=== PATIENT | male | born 1940 | race Caucasian/White ===

== ENCOUNTER → 2016-04-08 | Outpatient (CLI) | payer OTHER ==
[~2016-04-08] MED LIST: ACET1TAB84 PO; ASCO1CAP3 PO; ASPI81TA28 PO; ATV/1 PO; BACL10TA PO; BACL20TA PO; CHOL1000 PO; CHOL1TAB76 PO; CYAN10005 PO; DICL1GEL28 TOP; FERR1TAB23 PO; FERROUS PO; FLNIN NAE; FLV1 PO; GLUC15002 PO; GUAI1TAB27 PO; HUMULIN N SQ; INSUINJ17 SC; IPRA1AER2 INH; LEVO112T2 PO; LEVO125T72 PO; LEVO1TAB PO; LIVALO PO; LOSA25TA18 PO; LOSA50TA6 PO; LUTE20TA PO; MULTTAB58 PO; NIAC1TAB3 PO; NRN/300 PO; NVLNI SC; OMEG10002 PO; OMEGCAP2 PO; OXGN; PYRI100T4 PO; TORS20TA2 PO; TURM1CAP4 PO; VENL150C56 PO; VITA200C5 PO
== END | disposition home or self-care (01) ==
LOC: C.LABSPEC 17:08
PROVIDERS: ATTEND Podiatrist Foot & Ankle Surgery
DX: L97.509 Non-pressure chronic ulcer of other part of unspecified foot with unspecified severity (principal)

== ENCOUNTER → 2016-07-05 | Outpatient (CLI) | payer OTHER ==
[~2016-07-05] MED LIST changes: +CEPH500C PO; -GUAI1TAB27 PO; +GUAI400T44 PO
[2016-07-05 12:40] LABS: HEMATOCRIT 41.3 % (42-52); MEAN CELL VOLUME 105.1 fL (80-100); MEAN CORPUSCULAR HEMOGLOBIN 33.6 pg (25-34); PLATELET COUNT 143 K/uL (130-400); RED BLOOD COUNT 3.93 M/uL (4.7-6.1); WHITE BLOOD COUNT 10.55 K/uL (4.8-10.8)
[2016-07-05 14:03] LABS: BLOOD UREA NITROGEN 35 mg/dl (7-18); BUN/CREATININE RATIO 25.3 (10-20); CARBON DIOXIDE 31 mmol/L (21-32); CHLORIDE 108 mmol/L (98-107); GLUCOSE 114 mg/dl (70-99); POTASSIUM 4.3 mmol/L (3.5-5.1); SODIUM 145 mmol/L (136-145)
== END | disposition home or self-care (01) ==
LOC: C.LAB 11:56
PROVIDERS: ATTEND Internal Medicine Interventional Cardiology
DX: Z01.818 Encounter for other preprocedural examination (principal)

== ENCOUNTER → 2016-07-07 | Day surgery (SDC) | payer OTHER ==
[2016-07-07] VITALS (9 sets, daily range): BP systolic 111–142; BP diastolic 44–74; PULSE 80–87; TEMP 36.4–36.7; O2SAT 84–98; Ht 195.6 cm; Wt 170.4 kg
[~2016-07-07] VITALS: Ht 195.6 cm; Wt 170.4 kg
[~2016-07-07] MED LIST changes: +ACETAMINOPHEN 325 MG TAB PO PRN; +FENTANYL CITRATE INJ 50 MCG/1 ML 2 ML VIAL IV ONE; +FENTANYL CITRATE INJ 50 MCG/1 ML 2 ML VIAL ONE; +HEPARIN SOD (PORCINE) 1000 UNIT/ML 10 ML VIAL ONE; +IODIXANOL (VISIPAQUE) 270 MG/ML 150ML FLUSH ONE; +MIDAZOLAM HCL 1 MG/ML 2ML VIAL IV ONE; +MIDAZOLAM HCL 1 MG/ML 2ML VIAL ONE; +NITROGLYCERIN 5 MG/ML 10 ML VIAL IART ONE; +NITROGLYCERIN/D5W 100MCG/ML 20ML SYR ONE; +NiCARDipine HCL INJ 2.5 MG/ML 10 ML AMP ONE; +SODIUM CHLORIDE 0.9% 1000ML 1,000 ML IV SCH; +SODIUM CHLORIDE 0.9% 1000ML IV SCH
--- NOTE | 2016-07-07 07:43 | Procedure Note ---
Pre-Mod Sedation Assessment General Date of Moderate Sedation: July 07, 2016. Vital Signs: Vital Signs Past 12 Hours Date Time Temp Pulse Resp B/P Pulse Ox O2 Delivery O2 Flow Rate FiO2 07/07/16 06:33 36.7 82 22 142/74 93 Room Air Review Cardiovascular: regular rate, rhythm, no edema Abdomen: normal bowel sounds, soft Lungs: chest non-tender, lungs clear Pre-Sedation Airway Assessment Oral Cavity: Dentures Able to Visualize Vocal Cords: No Short Thick Neck: Yes Hx of Sleep Apnea: Yes Smoking Status: Former Smoker Mallampati Classification: Class III ASA Classification: Class III Procedure Planning Contraindications-for Mod Sed: None Yes Notes The planned sedation has been discussed with the patient and consent obtained. I have identified the patient, determined the appropriateness of sedation and have assessed the patient immediately prior to the procedure. All medicine(s) and interventions are by my order.
--- NOTE | 2016-07-07 07:51 | History and Physical ---
History & Physical Date July 07, 2016. Chief Complaint PAD, Non-healing lower extremity ulceration History of Present Illness Mr. Thompson is a very pleasant 75 year old man with a history of PAD post left lower extremity DEPUTY BUILDING GUARD, type 2 diabetes on insulin, morbid obesity, hyperlipidemia , KARLA on BiPap, COPD, CKD, and prior tobacco abuse here for follow-up slow healing lower extremity wound. Patient followed by his systems lead, Dr. Schuster. He has had a slow healing ulceration on his left heel since November. Wound is decreasing in size per his with continued wound care. He denies any surrounding redness, fevers/ chills, or drainage. Denies any rest pain. Previously followed by Dr. Gill for his vascular care. Per report underwent DEPUTY BUILDING GUARD without stenting to his SFA in 2013 for left rolon wounds with eventual healing. Has been followed since with intermittent ABIs. Recent noninvasive physiologic testing showed moderate arterial insufficiency on the right by WILLARD and noncompressible tibial vessels the left with moderate insufficiency by TBI on the left. There is suggestion of moderate distal SFA disease and severe diffuse tibial vessel disease on the left. Past Medical/Surgical History PAD s/p DEPUTY BUILDING GUARD, Type 2 DM, Dyslipidemia, COPD, KARLA on BiPap on 4L at night, CKD, Hypothyroidism, anemia, chronic back pain requiring steroid injections, Osteoarthritis post left total hip replacement complicated by hematoma Additional History Hepatic Disease: No Endocrine Disorder: Yes Kidney Disease: Yes Hypertension: Yes Heart Disease: No Bleeding Tendencies: No Infectious Diseases: No Allergies Coded Allergies: Warfarin (Verified Allergy, Intermediate, NECROSIS, 07/07/16) STEPHANE Inhibitors (Verified Allergy, Mild, Cough., 07/07/16) Sulfa Antibiotics (Verified Allergy, Mild, Itching., 07/07/16) Home Medications Scheduled Ascorbic Acid (Vitamin C), 500 MG PO BID Aspirin (Aspirin Ec), 81 MG PO QAM Baclofen (Lioresal), 20 MG PO TID Diclofenac Sod (Voltaren 1% Top Gel), 1 DOSE TOP PRN Sjoedsymsae-Lvzvlziteyj-Tsp C- (Glucosamine 1500 Complex), 1 CAPSULE PO BID Guaifenesin (Guaifenesin), 0.5 TAB PO HS Insulin Regular (Humulin-R), 22 UNITS SC QAM Insulin Regular (Humulin-R), 10 UNITS SC LUNCH & DINNER Levothyroxine Sodium (Synthroid), 0.137 MG PO QAM Levothyroxine Sodium (Synthroid), 1 TAB PO DAILY Losartan Potassium (Cozaar), 25 MG PO QAM Lutein (Lutein), 20 MG PO QAM Multiple Vitamin (Multivitamin), 1 TABLET PO QAM Niacinamide (Niacin), 1 TAB PO QAM [place]-3 Fatty Acids (Fish Oil), 1 CAPSULE PO QAM Oxygen (Oxygen), 4 LITERS NA HS Torsemide (Demadex), 40 MG PO Q2D Torsemide (Demadex), 80 MG PO Q2D Turmeric (Curcuma [place]) (Turmeric), 1 CAP PO QAM Vitamin E (Vitamin E), 200 INTER.UNIT PO QAM [Ferrous], 246 MG PO 3XWEEKLY [humulin N], 5 UNIT SQ HS Scheduled PRN Acetaminophen (Tylenol Arthritis Ext Rel), 650 MG PO Q8H PRN for Pain Fluticasone Propionate (Flonase Nasal [place]), 2 SPRAYS ESTRELLITA BID PRN for Respiratory Gabapentin (Neurontin), 300 MG PO QID PRN for PRN Ipratropium-Albuterol (Combivent Respimat), 1 PUFFS INH QID PRN for SOB/Wheezing Physical Examination Skin: warm/dry, + pertinent finding (erythema/fungal rash left groin) Eyes: normal inspection Head: normocephalic Respiratory/Chest: lungs clear, normal breath sounds Cardiovascular: regular rate, rhythm, no edema Abdomen / GI: normal bowel sounds Back: + pertinent finding (superficial ulceration over coccyx ) Extremities: + pertinent finding (signs of chronic venous stasis changes. small superficial ulceration on left heel) Neurologic/Psych: no motor/sensory deficits ASA Classification: ASA Class III Plan of Treatment Proceed with bilateral lower extremity angiogram.
--- NOTE | 2016-07-07 10:27 | [facility] Operative Report ---
Operative Report Operative Date July 07, 2016. Pre-Operative Diagnosis Lower extremity ulceration PAD Post-Operative Diagnosis PAD Procedure(s) Performed Bilateral lower extremity Angiogram Surgeon Dr. Cheung Host Surgeon(s) Airam Singh Despite ultrasound/fluor guidance difficulty accessing right CLINICAL GENETICIST. Decision made to perform procedure from left radial artery as patient unable to tolerate prolonged period lying flat. Glideadvantage from left radial artery to abdominal aorta. Selective angiogram of bilateral iliacs with 125 cm multipurpose 135 Trailblazer to SFA for selective angiogram of distal left lower extremity Left lower extremity: Common iliac - Minimal disease External iliac - Minimal disease Internal iliac - Minimal disease CLINICAL GENETICIST - Minimal disease Profunda - Minimal disease SFA - Mild diffuse atherosclerosis Distal SFA/popliteal - Patent distal SFA stent with minimal ISR Distal popliteal - mild diffuse atherosclerosis TPT - 40-50% stenosis at bifurcation of PT/Enrrique AT - Occluded proximally PT - mild diffuse disease to ankle Peroneal - minimal disease Right lower extremity: Common iliac - Minimal disease External iliac - Minimal disease Internal iliac - Minimal disease CLINICAL GENETICIST - Severely calcified with diffuse mild disease Profunda - Minimal disease SFA - Mild diffuse atherosclerosis, severely calcified distally Popliteal - Calcified, poorly visualized, possible severe disease Below the knee vessels poorly visualized. Summary: 1. Mild left lower extremity inflow/SFA disease with patent distal SFA stent. Widely patent distal 2 vessel runoff supplying left heel. 2. Severely calcified right CLINICAL GENETICIST with mild diffuse SFA disease. Below the knee vessels poorly visualized (patient unable to tolerate additional imaging). Recommendations: Good inline flow to left lower extremity ulceration. No indication for intervention at this time. Continued wound care with podiatry. Complication(s) None Disposition Recovery Room / PACU I attest to the content of the Intraoperative Record and any orders documented therein. Any exceptions are noted below.
--- NOTE | 2016-07-07 10:28 | Procedure Note ---
Post-Mod Sedation Assessment General Date of Moderate Sedation July 07, 2016. Vital Signs: Vital Signs Past 12 Hours Date Time Temp Pulse Resp B/P Pulse Ox O2 Delivery O2 Flow Rate FiO2 07/07/16 07:45 36.7 82 22 142/74 93 Room Air 07/07/16 06:33 36.7 82 22 142/74 93 Room Air Review - Discharge Criteria Vital Signs Stable: Yes Alert/Oriented/Conversant: Yes Returned to Baseline Mental St: Yes Nausea Absent/Minimal: Yes Pain/Discomfort/Absent/Minimal: Yes Normal/Baseline Respirations: Yes Active Bleeding?: N/A Pt Received D/C Instructions: Yes Prescriptions Given: None Specific Proced. D/C Criteria Distal Pulses Present (Cardiac: Yes Groin site assessed-Card Cath: Yes Voided Prior To Discharge: N/A Discharged Patients Adult Escort/Transportation: Yes
--- NOTE | 2016-07-07 10:33 | Discharge Instructions ---
Discharge Instructions Procedure Procedure Date: July 07, 2016. Reason for Visit: PAD, Peripheral Artery Disease. Discharge Discharge Date: July 07, 2016. Last Recorded Wt (Kilograms): 174.5 Anesthesia Post Anesthesia Instructions: If you have had General Anesthesia or IV Sedation: * Do not drive today. * Resume driving when surgeon permits. * Do not make important decisions or sign legal documents today. * Call surgeon for: 1. Temperature elevations greater than 101 degrees F. 2. Uncontrollable pain. 3. Excessive bleeding. 4. Persistent nausea and vomiting. 5. Medication intolerance (nausea, vomiting or rash). * For nausea and vomiting use only clear liquids such as: tea, soda, bouillon until nausea subsides, then gradually increase diet as tolerated. * If you have any concerns or questions, call your surgeon's office. If physician is unavailable and it is an emergency, call 911 or go to the nearest emergency room. Instructions Activity Recommendations: limitations as noted below Recommended Home Diet: resume previous diet Allergies: Coded Allergies: Warfarin (Verified Allergy, Intermediate, NECROSIS, 07/07/16) STEPHANE Inhibitors (Verified Allergy, Mild, Cough., 07/07/16) Sulfa Antibiotics (Verified Allergy, Mild, Itching., 07/07/16) Follow Up Additional Instructions: ACTIVITY RECOMMENDATIONS: It is common to feel weak and fatigue for a few days. * Do not drive or operate any motorized equipment for the next three days. * Limit stair usage (2 or 3 trips a day only) for the next three days. * Do not lift anything heavier than 10 pounds for the next three days. * Do not engage in vigorous exercise or any sports for the next five days. * You may shower the day after your procedure, but do not immerse the area for three days. Cleanse the site gently with soap and water. SPECIAL CARE INSTRUCTIONS: * You may replace the pressure dressing or band-aid the morning after the procedure. * After your procedure, it is normal to have a small bruise or small lump at the site. Examine your site daily for any change in the bruise or lump, redness, swelling, drainage or numbness. Notify your doctor if any change. BLEEDING: * If there is a small amount of bleeding at the site, lie down and apply firm pressure with a clean cloth for ten minutes. When the bleeding stops, lie quietly keeping the procedure limb straight for six hours. Notify your doctor as soon as possible. * If the bleeding does not stop after ten minutes or if there is a large amount of bleeding or spurting, call 911 immediately. Continue to lie down and hold firm pressure until help arrives. SKIN IRRITATION: * You may experience some redness and/or swelling in the area where radiation was administered. If any skin irritation occurs, please contact your family physician. FOLLOW UP VISIT: Keep any scheduled doctor appointments. Follow-up with: Dr. Cheung in 3 months. David Jiménez Recommendations: Call your doctor if: * Temperature above 101 degrees * Pain not relieved by pain medicine ordered * There is increased drainage or redness from any incision * You have any unanswered questions or concerns. Your Doctors Instructions noted above were prepared by provider Tin Cheung. Patient Signature Section: Patient Instructions Signature Page Donovan Thmopson Patient (or Guardian) Signature/Date: I have read and understand the instructions given to me by my caregivers. Caregiver/RN/Doctor Signature/Date: The above-named patient and/or guardian has received patient instructions on this date. + Original Patient Signature Page (only) stays with chart. Please make copy for patient.
== END | disposition home or self-care (01) ==
LOC: C.ACU 05:40
PROVIDERS: ATTEND Internal Medicine Interventional Cardiology
DX: L97.409 Non-pressure chronic ulcer of unspecified heel and midfoot with unspecified severity (principal); I73.9 Peripheral vascular disease, unspecified; E11.9 Type 2 diabetes mellitus without complications; E66.01 Morbid (severe) obesity due to excess calories; E78.5 Hyperlipidemia, unspecified; G47.33 Obstructive sleep apnea (adult) (pediatric); J44.9 Chronic obstructive pulmonary disease, unspecified; N18.9 Chronic kidney disease, unspecified; Z87.891 Personal history of nicotine dependence

== ENCOUNTER → 2016-09-08 | Outpatient (CLI) | payer OTHER ==
[~2016-09-08] MED LIST changes: -ACETAMINOPHEN 325 MG TAB PO PRN; -CEPH500C PO; -FENTANYL CITRATE INJ 50 MCG/1 ML 2 ML VIAL IV ONE; -FENTANYL CITRATE INJ 50 MCG/1 ML 2 ML VIAL ONE; +GUAI1TAB27 PO; -GUAI400T44 PO; -HEPARIN SOD (PORCINE) 1000 UNIT/ML 10 ML VIAL ONE; -IODIXANOL (VISIPAQUE) 270 MG/ML 150ML FLUSH ONE; -LIVALO PO; -MIDAZOLAM HCL 1 MG/ML 2ML VIAL IV ONE; -MIDAZOLAM HCL 1 MG/ML 2ML VIAL ONE; -NITROGLYCERIN 5 MG/ML 10 ML VIAL IART ONE; -NITROGLYCERIN/D5W 100MCG/ML 20ML SYR ONE; -NiCARDipine HCL INJ 2.5 MG/ML 10 ML AMP ONE; -SODIUM CHLORIDE 0.9% 1000ML 1,000 ML IV SCH; -SODIUM CHLORIDE 0.9% 1000ML IV SCH; -VENL150C56 PO
== END | disposition home or self-care (01) ==
LOC: C.LABSPEC 17:00
PROVIDERS: ATTEND Podiatrist Foot & Ankle Surgery
DX: L97.509 Non-pressure chronic ulcer of other part of unspecified foot with unspecified severity (principal)

== ENCOUNTER → 2016-09-20 | Day surgery (SDC) | payer OTHER ==
[~2016-09-20] VITALS: Ht 193 cm; Wt 168.0 kg
[2016-09-20] VITALS (8 sets, daily range): BP systolic 120–150; BP diastolic 55–70; PULSE 72–78; TEMP 36.5–37; O2SAT 90–97; Ht 193 cm; Wt 168.0 kg
[~2016-09-20] MED LIST changes: +CEFAZOLIN 3000 MG/65 ML D5W 65 ML IV SCH; +FENTANYL CITRATE INJ 50 MCG/1 ML 2 ML VIAL IV ONE; +FENTANYL CITRATE INJ 50 MCG/1 ML 2 ML VIAL ONE; +HEPARIN SOD (PORCINE) 1000 UNIT/ML 10 ML VIAL ONE; +IODIXANOL (VISIPAQUE) 270 MG/ML 150ML FLUSH ONE; +LIDOCAINE HCL 1% 20 ML VIAL INJ ONE; +MIDAZOLAM HCL 1 MG/ML 2ML VIAL IV ONE; +MIDAZOLAM HCL 1 MG/ML 2ML VIAL ONE; +SODIUM CHLORIDE 0.9% 1000ML 1,000 ML IV SCH; +SODIUM CHLORIDE 0.9% 1000ML IV SCH
--- NOTE | 2016-09-20 08:02 | History and Physical ---
History & Physical Date of Service Sep 20, 2016. History & Physical CC: Non healing ulcer left foot HPI: I had the pleasure of seeing Mr. Thompson today for evaluation today. As you know, he has a long-standing nonhealing ulcer of his left heel on the lateral aspect. He underwent arteriography 2 months prior to this with no intervention attempted at that time. He is a diabetic, on insulin, and morbidly obese. He also has hyperlipidemia and is on BiPAP. He does have COPD and prior history of tobacco use. He is morbidly obese. He does not walk far or fast enough to claudicate. The wound at this point appears not to be healing , is at a standstill. He denies any rest pain in the foot. He has had an arteriography in the past once for his right groin, which left him with a large hematoma and scrotal swelling, and also from the left wrist, which was done this year. ALLERGIES: COUMADIN, STEPHANE INHIBITORS, AND SULFA. MEDICATIONS: He is on numerous medications. These were all reviewed and no changes were made. PAST MEDICAL HISTORY: Positive for previous balloon angioplasty of his lower extremities; diabetes mellitus; hyperlipidemia; COPD; sleep apnea, on BiPAP 4 L at night; renal insufficiency; hypothyroidism; anemia; chronic back pain; osteoarthritis with a left hip surgery in the past with hematoma of the left thigh following the surgery. FAMILY HISTORY: Positive for heart disease and cancer. SOCIAL HISTORY: He quit in 2013 from smoking. He drinks 1 glass of wine every 2 to 3 weeks. PHYSICAL EXAM: Patient is awake, oriented x3. He is morbidly obese. Lungs: Clear. Heart: Regular rate and rhythm. Abdominal exam shows an obese abdomen. I cannot appreciate an aortic pulse. Radial, carotids, vertebrals arteries are +2 bilaterally. Femorals are actually +2. I cannot feel any pedal pulses. There is decreased capillary refill of both feet. There is an ulceration present on the lateral aspect of the heels of the left foot in the lateral aspect. 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 PLAN AND RECOMMENDATIONS: I reviewed the arteriogram done recently on the left lower extremity. There is an area in the calf which was not well seen. There is also an area just below the patella which may have of area of significant narrowing of 80%. I think at this point if we plan on doing anything to increase the flow, that another arteriogram is indicated to better see the outflow vessels. No intervention was attempted at the previous arteriogram. If any of these lesions are true, then we will attempt to try to cross them with a wire and see if we could do anything endovascularly to help in the flow to the foot. This will be done within the next couple of weeks. We will keep you informed as to his progress.
--- NOTE | 2016-09-20 08:04 | Procedure Note ---
Pre-Mod Sedation Assessment General Date of Moderate Sedation: Sep 20, 2016. Pre-Sedation Airway Assessment Smoking Status: Former Smoker Mallampati Classification: Class I ASA Classification: Class II Notes The planned sedation has been discussed with the patient and consent obtained. I have identified the patient, determined the appropriateness of sedation and have assessed the patient immediately prior to the procedure. All medicine(s) and interventions are by my order.
[2016-09-20 08:15] LABS: BLOOD UREA NITROGEN 47 mg/dl (7-18); BUN/CREATININE RATIO 23.3 (10-20)
--- NOTE | 2016-09-20 10:51 | Procedure Note ---
Post-Moderate Sedation Plan General Date of Moderate Sedation Sep 20, 2016. Vital Signs: Vital Signs Past 12 Hours Date Time Temp Pulse Resp B/P (MAP) Pulse Ox O2 Delivery O2 Flow Rate FiO2 09/20/16 09:15 36.5 73 18 127/57 95 Room Air 09/20/16 08:10 36.5 73 18 127/57 (80) 95 Room Air Review - Discharge Plan Post Moderate Sedation Plan: On clinical assessment, the patient appears to have tolerated the conscious sedation without complications. Patient is recovering as anticipated. Patient will continue to be monitored by nursing and may be discharged when conscious sedation discharge criteria are met.
--- NOTE | 2016-09-20 10:53 | [facility] Post Operative Brief Note ---
Immediate Operative Summary Operative Date Sep 20, 2016. Pre-Operative Diagnosis left infra popliteal artery occlusive disease Post-Operative Diagnosis same Procedure(s) Performed Left Lower Extremity Angiogram, Ultrasound localization of right common femoral artery, Mechanical Closure Right Femoral Artery, Moderate Concious Sedation [address] Hogan Roving Can Tender Surgeon(s) none Estimated Blood Loss 5 ml Findings infra popliteal artery occlusive disease Specimens none Anesthesia Local with sedation Complication(s) None Disposition
--- NOTE | 2016-09-20 10:56 | Discharge Instructions ---
Discharge Instructions Date of Service Sep 20, 2016. Visit Reason for Visit: Popliteal Artery Occlusive Disease W/Ulcer Lle Discharge Discharge Diagnosis / Problem: Non healing ulcer left foot Discharge Goals Goal(s): Diagnostic testing Activity Recommendations Activity Limitations: per Instructions/Follow-up section Anesthesia . Post Anesthesia Instructions: If you have had General Anesthesia or IV Sedation: * Do not drive today. * Resume driving when surgeon permits. * Do not make important decisions or sign legal documents today. * Call surgeon for: 1. Temperature elevations greater than 101 degrees F. 2. Uncontrollable pain. 3. Excessive bleeding. 4. Persistent nausea and vomiting. 5. Medication intolerance (nausea, vomiting or rash). * For nausea and vomiting use only clear liquids such as: tea, soda, bouillon until nausea subsides, then gradually increase diet as tolerated. * If you have any concerns or questions, call your surgeon's office. If physician is unavailable and it is an emergency, call 911 or go to the nearest emergency room. . Instructions / Follow-Up Instructions / Follow-Up Call [phone] to schedule a follow up appointment if one not already scheduled. SPECIAL CARE INSTRUCTIONS: Medications: * Continue to take your medications as directed. If you have been given a prescription for Plavix, please fill it immediately and take as directed. Incision Care: * Your puncture site may have some bruising and minor swelling for about one week. * You will have a small dressing covering your puncture site. You may remove the dressing after 24 hours and shower. You may let the warm soapy water run over it, but be sure to dry the puncture site well and keep it dry. * DO NOT IMMERSE THE INCISION IN A TUB/POOL/etc. UNTIL HEALED. * Puncture sites should be kept covered with a band-aid until it begins to heal. Restrictions: * Depending on whether you leg or arm was punctured to access the arteries, you will be required to lay flat, hold your arm still, or both, for about 4 hours after the procedure to prevent bleeding. * Limit your activity for the first 48 hours. You may walk and go up and down steps. Avoid excessive bending or movement at the puncture site. Possible Complications: * Excessive Swelling - after blood flow is improved you may notice increased swelling in the lower legs. This is a normal response. This usually depends on the amount of blockages in the leg, how long they have been there prior to your procedure and how much blood flow was restored. Elevating your legs will help to improve this. Please notify our office ([phone] ) if the swelling does not go away after lying in bed overnight. * Infection/Drainage/Bleeding - Drainage or bleeding from the puncture site should be minimal. If you have excessive bleeding or drainage, call our office ([phone]) right away. * Pain - You may experience some mild pain or soreness at your puncture site. If your pain does not improve, please contact our office ([phone]). Call your doctor and seek emergent treatment if you develop: * Temperature above 101 degrees * Any fever or chills * Any redness or purulent drainage from the puncture site * Any new dusky/blue colored toes or feet with coolness or sharp or aching pain. SKIN IRRITATION: * You may experience some redness and/or swelling in the area where radiation was administered. If any skin irritation occurs, please contact your family physician. FOLLOW UP VISIT: Keep any scheduled doctor appointments. Diet Recommendations Recommended Home Diet: resume previous diet Procedures Procedures Performed: Left Lower Extremity Angiogram, Mechanical Closure Right Femoral Artery, Moderate Concious Sedation 0954 to 1048 Pending Studies Studies pending at discharge: no Medical Emergencies . Who to Call and When: Medical Emergencies: If at any time you feel your situation is an emergency, please call 911 immediately. . Non-Emergent Contact Non-Emergency issues call your: Surgeon . . "Provider Documentation" section prepared by Yoseph Hogan. .
--- NOTE | 2016-09-20 12:37 | DIAGNOSTIC IMAGING REPORT ---
DATE OF PROCEDURE: 09/20/2016 PREOPERATIVE DIAGNOSIS: Infrapopliteal artery occlusive disease. POSTOPERATIVE DIAGNOSIS: Same. PROCEDURES: Left lower extremity arteriography third order, mechanical closure of the right femoral artery, conscious sedation 54 minutes, ultrasound localization of the right common femoral artery. SURGEON: Dr. Hogan. ANESTHETIC: Local with conscious sedation. PROCEDURE INDICATIONS: The patient is a 75-year-old white male with a longstanding nonhealing ulcer of the left heel, lateral aspect. He underwent arteriography 2 months prior to this and no intervention was attempted at that time. The films of the popliteal artery distally were fairly poor without good visualization. We recommended repeat arteriogram to better evaluate his outflow. We would do any intervention if needed and indicated at that time and possible. He understood the risks, options and benefits and agreed to have this procedure. PROCEDURE IN DETAIL: The patient was taken to the angio suite and placed in supine position. After the right and left groin were prepped and draped in a sterile manner, local anesthetic was administered. The ultrasound was used to locate the right common femoral artery. A puncture was then made in the right common femoral artery under direct ultrasound guidance. The artery was patent at that point to the ultrasound. Wire was then passed centrally. A 5-Cymro sheath was inserted over the wire. Using an 0.035 wire and an 0.035 Glidewire and a rim catheter, the left iliac was cannulated from the right side. The arteriography was then performed of the left lower extremity. This showed the iliac, common femoral, superficial femoral, profunda femoral artery to be patent. The popliteal showed mild stenosis proximally in the range of 20%. Distally, the tibioperoneal trunk appeared to be occluded. The anterior tibial was occluded at its origin. The posterior tibial was occluded at its origin. There was a large collateral branch coming off the anterior tibial takeoff, which collateralizes with the proximal peroneal. The peroneal from this point now was widely patent. We then passed a wire and catheter into the popliteal artery get better pictures of the tibioperoneal trunk area. We used multiple wires and multiple catheters until we finally got an 0.035 wire and an 0.035 Quick-Cross down to tibioperoneal trunk. This was done after we switched out the 5-Cymro sheath to a 6-Cymro destination. Further arteriography done at that time revealed that this collateral was widely patent with no stenosis seen. The tibioperoneal trunk itself appeared to be occluded. We decided at this time that we would attempt to try and cannulate the tibioperoneal trunk. We used an 0.035 wire. This was passed into the tibioperoneal trunk for approximately 1 cm to 2 cm down, would not pass any further. At that point, it was decided to abandon this being that we wound not be able to cross the lesion. Again, distally the posterior tibial did reconstitute in the lower third of the leg and the dorsalis pedis did reconstitute just above the ankle. At that point, the destination was pulled over to right side. Arteriography showed the puncture to be right on the common femoral artery, just before the bifurcation. The puncture site was then closed with a Star closure device. Sterile dressings were then applied to the wound. The patient left the angio suite in good condition and tolerated the procedure well. MARLYS
== END | disposition home or self-care (01) ==
LOC: C.ACU 07:09
PROVIDERS: ATTEND Surgery Vascular Surgery
DX: L97.829 Non-pressure chronic ulcer of other part of left lower leg with unspecified severity (principal); I74.3 Embolism and thrombosis of arteries of the lower extremities; J44.9 Chronic obstructive pulmonary disease, unspecified; E03.9 Hypothyroidism, unspecified; E11.9 Type 2 diabetes mellitus without complications; E78.5 Hyperlipidemia, unspecified; G47.30 Sleep apnea, unspecified; M19.90 Unspecified osteoarthritis, unspecified site; Z87.891 Personal history of nicotine dependence; Z79.4 Long term (current) use of insulin; Z98.62 Peripheral vascular angioplasty status; Z82.49 Family history of ischemic heart disease and other diseases of the circulatory system

== ENCOUNTER → 2016-11-16 | Day surgery (SDC) | payer OTHER ==
[2016-11-09 09:26] VITALS: BMI 44.0
[~2016-11-16] VITALS: Ht 193 cm; Wt 165.4 kg
[~2016-11-16] MED LIST changes: -BACL10TA PO; -CEFAZOLIN 3000 MG/65 ML D5W 65 ML IV SCH; -CHOL1000 PO; -DICL1GEL28 TOP; +EpHEDrine SULFATE 50MG/5ML SYR ONE; -FENTANYL CITRATE INJ 50 MCG/1 ML 2 ML VIAL IV ONE; -FENTANYL CITRATE INJ 50 MCG/1 ML 2 ML VIAL ONE; -FERROUS PO; +GLYCOPYRROLATE INJ 0.2 MG/ML VIAL ONE; -GUAI1TAB27 PO; -HEPARIN SOD (PORCINE) 1000 UNIT/ML 10 ML VIAL ONE; -HUMULIN N SQ; -IODIXANOL (VISIPAQUE) 270 MG/ML 150ML FLUSH ONE; +KETAMINE HCL INJ 50 MG/ML 10 ML VIAL ONE; -LEVO112T2 PO; -LEVO1TAB PO; -LIDOCAINE HCL 1% 20 ML VIAL INJ ONE; +LIDOCAINE HCL 2% 2 ML VIAL (20MG/ML) ONE; -LOSA50TA6 PO; -MIDAZOLAM HCL 1 MG/ML 2ML VIAL IV ONE; -MIDAZOLAM HCL 1 MG/ML 2ML VIAL ONE; -MULTTAB58 PO; -OMEGCAP2 PO; +PHENYLEPHRINE 100MCG/ML 5ML SYR ONE; +PROPOFOL IV EMULSION 10 MG/ML 20 ML VIAL IV ONE; -SODIUM CHLORIDE 0.9% 1000ML 1,000 ML IV SCH; -SODIUM CHLORIDE 0.9% 1000ML IV SCH; +SODIUM CHLORIDE 0.9% 500ML 500 ML IV ONE
[2016-11-16 08:41] VITALS: Ht 193 cm; Wt 165.4 kg
--- NOTE | 2016-11-16 08:59 | Endo History and Physical ---
History & Physical Date of Service: Nov 16, 2016. Chief Complaint: HX OF POLYPS Referring Physician: DR PATTERSON History of Present Illness H/o polyps Past Medical History Diabetes, Gastrointestinal Disorder, High Cholesterol, Sleep Apnea, COPD, Thyroid Disease, Kidney Disease Past Surgical History Hx Cardiac Surgery: No Hx Internal Defibrillator: No Hx Pacemaker: No Hx Abdominal Surgery: No Hx of Implantable Prosthesis: No Hx Post-Op Nausea and Vomiting: No Hx Cancer Surgery: No Hx Thoracic Surgery: No Hx Orthopedic: Yes (LT ANNA, LT HEMATOMA EVACUATION, RT RCR) Hx Urinary Tract Surgery: No Family History Polyp Social History Smoking Status: Former Smoker Hx Substance Use: No Hx Alcohol Use: Yes (OCCASIONAL) Allergies Coded Allergies: Sulfa Antibiotics (Verified Allergy, Mild, Itching., 11/16/16) Warfarin (Unverified Adverse Reaction, Intermediate, NECROSIS, 11/16/16) STEPHANE Inhibitors (Unverified Adverse Reaction, Mild, Cough., 11/16/16) Statins (Verified Adverse Reaction, Unknown, MUSCLE ACHES, 11/16/16) Current Medications Reported Home Medications Medications Dose Route/Sig Max Daily Dose Days Date Category Dose Instructions Ativan (Lorazepam) 1 Mg Tab 1 Mg PO HS 11/09/16 Reported Iron (Ferrous Sulfate) 325 Mg Tab 1 Tab PO 2XWK 11/09/16 Reported Fish Oil ([place]-3 Fatty Acids) 1,000 Mg Cap 1 Cap PO BID 11/09/16 Reported Folic Acid 1 Mg Tab 4 Mg PO HS 11/09/16 Reported Novolin N (Insulin Human NPH) 100 Units/Ml Susp 5 Units SC HS 11/09/16 Reported D 2000 (Cholecalciferol) 2,000 Unit Tab 3 Tabs PO QAM 11/09/16 Reported Synthroid (Levothyroxine Sodium) 125 Mcg Tab 125 Mcg PO 2XWK 11/09/16 Reported MON,FRI Synthroid (Levothyroxine Sodium) 125 Mcg Tab 2 Tabs PO 5XWK 11/09/16 Reported SUN,TUES,WED,THURS,SAT Lioresal (Baclofen) 20 Mg Tab 20 Mg PO DAILY-BID PRN 11/09/16 Reported Cozaar (Losartan Potassium) 25 Mg Tab 25 Mg PO HS 11/09/16 Reported Vitamin B-12 (Cyanocobalamin) 1,000 Mcg Tab 1,000 Mcg PO QAM 09/20/16 Reported Vitamin B6 (Pyridoxine HCl) 100 Mg Tab 100 Mg PO QAM 09/20/16 Reported Tylenol Arthritis Ext Rel (Acetaminophen) 650 Mg Cplt 650 Mg PO Q8H PRN 08/11/15 Reported Turmeric (Turmeric (Curcuma Longa)) 500 Mg Cap 1 Cap PO QAM 08/11/15 Reported Combivent Respimat (Ipratropium-Albuterol) 1 Aer Aer 1 Puffs INH QID PRN 08/11/15 Reported Niacin (Niacinamide) 500 Mg Tab 1 Tab PO HS 08/11/15 Reported Demadex (Torsemide) 20 Mg Tab PO UD 10/18/14 Reported 2 TABS ON EVEN DAYS 4 TABS ON ODD DAYS Vitamin C (Ascorbic Acid) 500 Mg Cap 500 Mg PO BID 10/18/14 Reported Humulin-R (Insulin Human Regular) Inj 11 Units SC LUNCH & DINNER 10/18/14 Reported Humulin-R (Insulin Human Regular) Inj 23 Units SC QAM 10/18/14 Reported Neurontin (Gabapentin) 300 Mg Cap 300 Mg PO TID-QID PRN 10/18/14 Reported Flonase Nasal [place] (Fluticasone Propionate) 120 Sprays/6000 Mcg Inha 2 Sprays ESTRELLITA BID PRN 12/31/12 Reported Vitamin E 200 Unit Cap 200 Inter.unit PO QAM 12/31/12 Reported Lutein 20 Mg Tab 20 Mg PO HS 12/31/12 Reported Glucosamine 1500 Complex (Xiuaqvprazf-Fqmibiagpbr-Ihr C-) 1 Cap Cap 1 Capsule PO BID 12/31/12 Reported Aspirin Ec (Aspirin) 81 Mg Tab 81 Mg PO HS 12/31/12 Reported Oxygen Gas 4 Liters NA HS 12/31/12 Reported 4 LPM THROUGH BIPAP 12/02 DURING ALL PERIODS OF SLEEP. Vital Signs Weight (Kilograms): 165.45 Height (Feet): 6 Height (Inches): 4 Date Time Temp Pulse Resp B/P (MAP) Pulse Ox O2 Delivery O2 Flow Rate FiO2 11/16/16 08:50 36.1 75 18 188/64 (105) 95 Room Air Physical Exam General Appearance: no apparent distress Respiratory/Chest: Auscultation: breath sounds normal Cardiovascular: Heart Auscultation: RRR Abdomen: Inspection & Palpation: soft Assessment and Plan Cscopy - surveillance of polyps
--- NOTE | 2016-11-16 10:09 | GI REPORT ---
Procedure Date: 11/16/2016 8:51 AM Procedure: Colonoscopy Indications: High risk colon cancer surveillance: Personal history of colonic polyps, Last colonoscopy: July 2015 Medicines: See the Anesthesia note for documentation of the administered medications Complications: No immediate complications. Estimated Blood Loss: Estimated blood loss: none. Procedure: Pre-Anesthesia Assessment: - ASA Grade Assessment: III - A patient with severe systemic disease. After I obtained informed consent, the scope was passed under direct vision. Throughout the procedure, the patient's blood pressure, pulse, and oxygen saturations were monitored continuously. The scope was introduced through the anus and advanced to the cecum, identified by the appendiceal orifice. The patient tolerated the procedure well. The quality of the bowel preparation was good. The colonoscopy was performed with difficulty due to significant looping. Findings: The perianal exam findings include non-thrombosed external hemorrhoids and perianal condylomata. Multiple small and large-mouthed diverticula were found in the sigmoid colon. Eight sessile polyps were found in the sigmoid colon, in the transverse colon, at the hepatic flexure and in the ascending colon. The polyps were 4 to 7 mm in size. These polyps were removed with a cold snare. Resection and retrieval were complete. Three clips placed on polypectomy sites in the hepatic flexure and sigmoid colon. There was a retained clip at the hepatic flexure. The cecum could only be shallowly intubated, due to looping of the scope. Hemorrhoids on retroflexion. Impression: - Non-thrombosed external hemorrhoids and perianal condylomata found on perianal exam. - Diverticulosis in the sigmoid colon. - Eight 4 to 7 mm polyps in the sigmoid colon, in the transverse colon, at the hepatic flexure and in the ascending colon, removed with a cold snare. Resected and retrieved. Recommendation: - Discharge patient to home. Repeat exam for surveillance, pending pathology review and pt preference. Olivia Gleason M.D. Olivia Gleason MD 11/16/2016 10:09:32 AM This report has been signed electronically. Note Initiated On: 11/16/2016 8:51 AM I attest to the content of the Intraoperative Record and orders documented therein, exceptions below
--- NOTE | 2016-11-16 10:10 | Discharge Instructions ---
Endoscopy Patient Instructions Date / Procedure(s) Performed Nov 16, 2016. Colonoscopy Allergy Information Coded Allergies: Sulfa Antibiotics (Verified Allergy, Mild, Itching., 11/16/16) Warfarin (Unverified Adverse Reaction, Intermediate, NECROSIS, 11/16/16) STEPHANE Inhibitors (Unverified Adverse Reaction, Mild, Cough., 11/16/16) Statins (Verified Adverse Reaction, Unknown, MUSCLE ACHES, 11/16/16) Discharge Date / Findings Nov 16, 2016. Multiple polyps. Diverticulosis. Medication Instructions Stopped Medication(s): IRON AND ASA Resume aspirin Provider Instructions Activity Restrictions - No exercising or heavy lifting for 24 hours. - Do not drink alcohol the day of the procedure. - Do not drive a car or operate machinery until the day after the procedure. - Do not make any important decisions or sign important papers in 24 hours after the procedure. Following Day: - Return to full activity which may include returning to work/school. Diet Start your diet with liquids and light foods (jello, soup, juice, toast). Then eat your usual diet if not nauseated. Treatment For Common After Affects For mild abdominal pain, bloating, or excessive gas: - Rest - Eat lightly - Lie on right side Follow-Up Information Follow-up with DR PATTERSON as scheduled Anesthesia Information What You Should Know You have had a procedure that required some medicine to reduce anxiety and discomfort. This treatment is called moderate sedation. After receiving the treatment, you may be sleepy, but you will be able to breathe on your own. The effects of the treatment may last for several hours. Follow these instructions along with Activity/Diet recommendations noted above: * Do NOT do anything where dizziness or clumsiness would be dangerous. * Rest quietly at home today, then you can be up and about tomorrow. * Have a responsible person stay with you the rest of today. * You may have had an I.V. today. If so, you may take the dressing off later today. Recommendations Call your doctor if: * Trouble breathing * Continuous vomiting for more than 24 hours * Temperature above 101 degrees * Severe abdominal pain or bloating * Pain not relieved by pain medicine ordered * There is increased drainage or redness from any incision * A large amount of rectal bleeding greater than 2-3 tablespoons. (If you had a polyp/s removed or have hemorrhoids, a small amount of blood - from the rectum is to be expected.) * You have any unanswered questions or concerns. IN THE EVENT OF A SERIOUS EMERGENCY, GO TO THE NEAREST EMERGENCY ROOM Your discharge instructions were prepared by provider Olivia Benson. Patient Instructions Signature Page Donovan Thompson Patient (or Guardian) Signature/Date: I have read and understand the instructions given to me by my caregivers. Caregiver/RN/Doctor Signature/Date: The above-named patient and/or guardian has received patient instructions on this date. + Original Patient Signature Page (only) stays with chart. Please make copy for patient.
[2016-11-16 10:20] VITALS: BP 129/54; PULSE 71; O2SAT 94
--- NOTE | 2016-11-16 10:41 | Anesthesiology Progress Note ---
Anesthesia Post Op Note Date & Time Nov 16, 2016 at 10:41 Vital Signs Pain Intensity: 0 Vital Signs Past 12 Hours Date Time Temp Pulse Resp B/P (MAP) Pulse Ox O2 Delivery O2 Flow Rate FiO2 11/16/16 10:20 71 20 129/54 (79) 94 Room Air 11/16/16 10:08 76 20 107/46 (66) 95 Room Air 11/16/16 08:50 36.1 75 18 188/64 (105) 95 Room Air Notes Mental Status: alert / awake / arousable, participated in evaluation Pt Amnestic to Procedure: Yes Nausea / Vomiting: adequately controlled Pain: adequately controlled Airway Patency, RR, SpO2: stable & adequate BP & HR: stable & adequate Hydration State: stable & adequate Anesthetic Complications: no major complications apparent
== END | disposition home or self-care (01) ==
LOC: C.GI 08:17
PROVIDERS: ATTEND Internal Medicine Gastroenterology
DX: Z12.11 Encounter for screening for malignant neoplasm of colon (principal); A63.0 Anogenital (venereal) warts; D12.2 Benign neoplasm of ascending colon; D12.3 Benign neoplasm of transverse colon; D12.5 Benign neoplasm of sigmoid colon; K57.30 Diverticulosis of large intestine without perforation or abscess without bleeding; K64.4 Residual hemorrhoidal skin tags; Z86.010 Personal history of colon polyps; E78.00 Pure hypercholesterolemia, unspecified; E11.9 Type 2 diabetes mellitus without complications; G47.30 Sleep apnea, unspecified; J44.9 Chronic obstructive pulmonary disease, unspecified; E07.9 Disorder of thyroid, unspecified; N28.9 Disorder of kidney and ureter, unspecified; Z79.4 Long term (current) use of insulin; Z79.82 Long term (current) use of aspirin; Z79.899 Other long term (current) drug therapy; Z83.71 Family history of colonic polyps